=== PATIENT | male | born 1965 | race Two or more races ===

== ENCOUNTER 2020-07-02 13:07 | Outpatient (REF) | payer OTHER, SELFPAY ==
--- NOTE | ~2020-07-02 | XR_ITS ---
EXAMINATION: XR CHEST CLINICAL INFORMATION: Abdominal pain. COMPARISON: None TECHNIQUE: 2 views of the chest were obtained. FINDINGS: The lungs are hypoexpanded with patchy density seen in both lung bases likely atelectasis. The upper lungs are clear. Heart size and pulmonary vascularity is normal. No gross bony abnormality seen. XR/XR chest 2V IMPRESSION: Hypoexpanded lungs with bibasilar atelectasis.
[2020-07-02 13:53] LABS: MANUAL DIFF FLAG NO
[2020-07-02 14:07] LABS: Basophils Percent Auto 0.3 % (0-2); Eosinophils Absolute Auto 0.1 X10*3/uL (0.0-0.4); Eosinophils Percent Auto 0.6 % (0-4); Hematocrit 49.9 % (42-52); Hemoglobin 15.9 g/dl (14.0-18.0); Imm Gran Abs Auto 0.16 X10*3/uL (0.00-0.03); Imm Gran Pct Auto 1.2 % (0.0-0.4); Lymphocytes Absolute Auto 0.9 X10*3/uL (1.2-4.9); Lymphocytes Percent Auto 6.5 % (20-40); Mean Corpuscular HGB Conc 31.9 g/dl (31.0-36.0); Mean Corpuscular Hemoglobin 26.6 pg (27.0-33.0); Mean Corpuscular Volume 83.4 fL (80-98); Mean Platelet Volume 9.7 fL (9.4-12.4); Monocytes Absolute Auto 1.5 X10*3/uL (0.1-1.2); Monocytes Percent Auto 10.5 % (2-11); Neutrophils Absolute Auto 11.2 X10*3/uL (2.0-8.3); Neutrophils Percent Auto 80.9 % (45-73); Platelet Count 323 X10*3/uL (160-400); Red Blood Count 5.98 X10*6/uL (4.60-5.80); Red Cell Distribution Width 13.7 % (11.0-16.0); White Blood Count 13.9 X10*3/uL (4.8-10.8)
[2020-07-02 14:21] LABS: Alanine Aminotransferase 33 U/L (0-40); Albumin Level 4.8 g/dL (3.5-5.0); Alkaline Phosphatase 67 U/L (39-117); Amylase 68 U/L (28-100); Anion Gap 16 (12-20); Aspartate Amino Transferase 20 U/L (5-37); Bilirubin Total 0.7 mg/dL (0.0-1.0); Blood Urea Nitrogen 12 mg/dL (9-16); Calcium 9.9 mg/dL (8.4-10.2); Carbon Dioxide 30 mmol/L (22-29); Chloride 99 mmol/L (96-108); Estimated Glomerular Filt Rate > 60; Glucose Random 109 mg/dL (60-115); Lipase 25 U/L (8-78); Potassium 4.8 mmol/L (3.3-5.1); Sodium 140 mmol/L (135-145); Total Protein 7.8 g/dL (6.5-8.0)
== END 2020-07-02 13:08 | disposition home or self-care (01) ==
LOC: HO.HMGCX 13:07
PROVIDERS: Visit Provider Nurse Practitioner Family
DX: R10.9 Unspecified abdominal pain (principal); R07.89 Other chest pain
CPT/HCPCS: 36415; 71046; 80053; 82150; 83690; 85025

== ENCOUNTER 2020-07-03 12:58 | Outpatient (REF) | payer OTHER, SELFPAY ==
--- NOTE | ~2020-07-03 | CT_ITS ---
EXAMINATION: CT CHEST WITH CONTRAST CLINICAL INFORMATION: Chest pain COMPARISON: Chest x-ray 07/02/2020 TECHNIQUE: Multidetector volumetric CT imaging of the chest was obtained after the administration of 65 mL of Omnipaque 350 intravenous contrast without immediate adverse reactions. Axial MIP volume rendering provided. Sagittal and coronal reformatted images were obtained. This CT examination was performed using dose optimization techniques as appropriate, variously including the following: *Automated exposure control *Adjustment of mA and/or kV according to patient size (this includes techniques or standardized protocols for targeted exams where dose is matched to indication/reason for exam; i.e. extremities or head) *Use of iterative reconstruction technique DLP: 197 mGy-cm FINDINGS: COLDFUSION: Slightly hypoexpanded lungs. LUNGS: Lungs are expanded with right middle lobe, right lower lobe and left lower lobe basilar patchy aeration/atelectasis. The upper lungs are relatively clear. MEDIASTINUM: The thyroid lobes are symmetrical and normal. Heart size and the great vessels are normal caliber. No pericardial effusion seen central trachea and the bronchi widely patent. Small shotty lymph nodes are seen in the mediastinum. PLEURA: There is minimal bilateral posterior pleural thickening. No pleural effusion or calcification seen AXILLA: No lymphadenopathy. UPPER ABDOMEN: Visualized liver, spleen, pancreas and bilateral adrenal glands are unremarkable. Bone windows reveal no gross bony abnormality. OSSEOUS STRUCTURES: Unremarkable. CT/CT chest w con IMPRESSION: Bibasilar and right middle lobe consolidation/atelectasis Minimal bilateral posterior pleural thickening.
[2020-07-03] MEDS: iohexoL 350 MG/ML 100 ML INFUS..BTL 65 ML IV (13:51)
== END 2020-07-03 12:59 | disposition home or self-care (01) ==
LOC: HO.CT 12:58
PROVIDERS: Visit Provider Nurse Practitioner Family
DX: R07.89 Other chest pain (principal)
CPT/HCPCS: 71260; Q9967

== ENCOUNTER 2023-06-20 15:10 | Emergency (ER) | payer OTHER, SELFPAY ==
--- NOTE | 2023-06-20 15:12 | ED.SKABFB ---
HPI - Skin/Abscess/Foreign Bdy General Chief complaint: Wound/Laceration Stated complaint: left wrist infected area Time Seen by Provider: 06/20/23 21:04 Source: patient Mode of arrival: ambulatory History of Present Illness HPI narrative: 57-year-old male who presents with abscess at the left wrist that is initiated on Tuesday of last week, he is currently on antibiotics but states that the pain has increased. He denies any fevers or chills. Related Data Previous Rx's Medication Instructions Recorded diclofenac potassium 50 mg tablet 50 mg PO TID PRN pain #15 tabs 07/03/20 doxycycline hyclate 100 mg capsule 100 mg PO BID 10 days #20 caps 07/03/20 Allergies Allergy/AdvReac Type Severity Reaction Status Date / Time cyclobenzaprine Allergy Unknown INSOMNIA, Unverified 02/07/20 15:42 [CYCLOBENZAPRINE] HICCUPS dexamethasone [DEXAMETHASONE] Allergy Unknown HICCUPS, Unverified 02/07/20 15:42 insomnia, hiccups Review of Systems Review of Systems: Pertinent positives and negatives as stated in HPI PMFSH Past Medical History Source: nursing notes reviewed Social History Social History Smoked in Last 30 Days: No Use of substances other than those prescribed or required for medical reasons: No Advance Directives: No Advance Directives Information Provided: No Physical Exam Vital Signs: Vital Signs: Last Vital Signs Temp 97.8 F 06/20/23 21:11 Pulse 84 06/20/23 21:11 Resp 20 06/20/23 21:11 BP 155/92 H 06/20/23 21:11 Pulse Ox 99 06/20/23 21:11 O2 Del Method Room Air 06/20/23 21:11 BMI result Body Mass Index 27.7 VITAL SIGNS: Reviewed. GENERAL: Well developed, well nourished, in no acute distress. HEAD: Normocephalic/atraumatic EYES: PERRLA, EOMI LUNGS: Normal breath sounds. No adventitious sounds or accessory muscle use. SpO2<99> CARDIOVASCULAR: Regular rate and rhythm without noted murmurs ABDOMEN: Soft, non-tender, non-distended with bowel sounds. MUSCULOSKELETAL: No tenderness, deformities, or effusions noted on gross inspection. EXTREMITIES: No cyanosis, clubbing or edema. LEFT WRIST: abscess, fROM SKIN: Inspection of the skin reveals no rashes NEUROLOGIC: Alert and oriented x 4. Strength and sensation to light touch were grossly intact x 4. Course Course Course Narrative: RME:?57 yo male here for evaluation of abscess to left wrist. States it started as a small bump on his wrist 6 days ago. He was seen at urgent care that day and was started on Keflex and Bactrim for cellulitis of the left wrist. The area has been worsening in the redness is now extending to his arm. He presented to [facility] urgent Care today and was sent to ED for IV antibiotics secondary to failed outpatient treatment. [facility] faxing over note. Denies history of diabetes. Denies any trauma or injury to the wrist. PE: 6cm x 3cm abscess to ventral aspect of left wrist with pointing and some palpable central fluctuance with surrounding erythema extending to distal ventral forearm. yellow discharge noted on bandaid. no streaking or signs of lymphangitis. Full ROM to wrist intact. Normal [place] [employer] strength. 2+ radial pulses to left upper extremity. labs ordered Full HPI, ROS and PE to be performed by the primary ED provider. Medical Decision Making Medical Decision Making [facility] Narrative: 57-year-old male with history and clinical presentation consistent with abscess at left wrist, currently on antibiotics, performed incision and drainage of abscess with copious amounts of purulence drainage, irrigated it copiously and also broke up additional infectious material. Place a dressing and patient instructed to continue with antibiotics and follow-up with his primary care doctor. I reviewed all investigations and hematologic indices do not demonstrate any leukocytosis or left shift, there is no anemia or thrombocytopenia. Chemistry indices are grossly within normal limits and there are no derangements other than the expected elevation of CRP-4.45. Patient understands that he will need to follow-up with primary care doctor and get a referral for follow-up with hand surgery as indicated. Patient was instructed to return to the emergency room if there is no improvement within the next 2 days. Differential Diagnosis Differential Diagnoses: The differential diagnosis associated with the presentation includes Please see the discussion above Admission/Observation Consideration of admission/observation: Escalation of care including admission/observation considered Please see the discussion above Lab Data [facility] Lab Attestation statement: I reviewed the patient's lab results. Please see the discussion above 06/20/23 15:35 06/20/23 15:35 Labs: Lab Results 06/20/23 Range/Units 15:35 WBC 8.1 (4.8-10.8) X10*3/uL RBC 5.87 H (4.60-5.80) X10*6/uL Hgb 16.0 (14.0-18.0) g/dl Hct 48.7 (42.0-52.0) % MCV 83.0 (80.0-98.0) fL MCH 27.3 (27.0-33.0) pg MCHC 32.9 (31.0-36.0) g/dl RDW 13.1 (11.0-16.0) % Plt Count 288 (160-400) X10*3/uL MPV 9.1 L (9.4-12.4) fL Immature Gran % (Auto) 0.5 H (0.0-0.4) % Neut % (Auto) 68.0 (45-73) % Lymph % (Auto) 15.7 L (20-40) % Ransom % (Auto) 13.0 H (2-11) % Eos % (Auto) 1.9 (0-4) % Baso % (Auto) 0.9 (0-2) % Lymph # (Auto) 1.3 (1.2-4.9) X10*3/uL Ransom # (Auto) 1.1 (0.1-1.2) X10*3/uL Eos # (Auto) 0.2 (0.0-0.4) X10*3/uL Baso # (Auto) 0.1 (0.0-0.2) X10*3/uL Abs Immat Gran (auto) 0.04 H (0.00-0.03) X10*3/uL Absolute Neuts (auto) 5.5 (2.0-8.3) x10*3/uL Absolute Nucleated RBC 0.000 (0.0-0.012) X10*3/uL Nucleated RBC % (auto) 0.0 (0.0-0.2) /100WBC ESR 13 (0-15) MM/HR Sodium 139 (135-145) mmol/L Potassium 4.2 (3.3-5.1) mmol/L Chloride 107 (96-108) mmol/L Carbon Dioxide 24 (22-29) mmol/L Anion Gap 12 (12-20) BUN 16 (9-16) mg/dL Creatinine 1.07 (0.5-1.4) mg/dL Estim Creat Clear Calc 78.2 Estimated GFR > 60 Random Glucose 104 (60-115) mg/dL Lactic Acid 0.9 (0.5-2.0) mmol/L Calcium 9.9 (8.4-10.2) mg/dL Magnesium 2.2 (1.6-2.6) mg/dL C-Reactive Protein 4.45 H (< or = 0.50) mg/dL Lipase 37 (8-78) U/L External Record Review External record reviewed: Outpatient record and Prior outpatient labs Procedures Abscess I/D Site: upper extremity Side (if applicable): left Local Anesthetic: lidocaine 1% Amount of anesthesia used (mL): 3 Technique: incised with blade Amount of fluid expressed (mL): 30 Sent for culture/gram staining?: No Irrigation: Yes Packing used?: none Critical Care Time Critical Care Time Critical Care Time: Yes Total Critical Care Time: 30 Attestation: I personally attest to this time spent taking care of the patient. Discharge Plan Discharge Clinical Impression: Encounter for incision and drainage procedure Patient Disposition: Home, Self-Care Instructions: Abscess Incision and Drainage (DC) Additional Instructions: Apply hot moist compresses at least twice a day to encourage further softening and drainage of the infection. Recommend [id number] Tylenol/ibuprofen as needed for pain control. Please complete the entire course of antibiotics as prescribed. Follow-up with your primary care doctor by calling the office in the morning. Return to the ER for any worsening of symptoms such as development of fever, chills, worsening redness and swelling extending up into the elbow area. Prescriptions: No Action doxycycline hyclate 100 mg capsule 100 mg PO BID 10 Days Qty: 20 0RF diclofenac potassium 50 mg tablet 50 mg PO TID PRN (Reason: pain) Qty: 15 0RF
[2023-06-20 15:13] VITALS: BP 141/87; PULSE 86; RESP 18; TEMP 36.8; O2SAT 97; BMI 27.7
[2023-06-20 15:44] LABS: MANUAL DIFF FLAG NO
[2023-06-20 15:45] LABS: Basophils Absolute Auto 0.1 X10*3/uL (0.0-0.2); Basophils Percent Auto 0.9 % (0-2); Eosinophils Absolute Auto 0.2 X10*3/uL (0.0-0.4); Eosinophils Percent Auto 1.9 % (0-4); Hematocrit 48.7 % (42.0-52.0); Imm Gran Abs Auto 0.04 X10*3/uL (0.00-0.03); Imm Gran Pct Auto 0.5 % (0.0-0.4); Lymphocytes Absolute Auto 1.3 X10*3/uL (1.2-4.9); Lymphocytes Percent Auto 15.7 % (20-40); Mean Corpuscular HGB Conc 32.9 g/dl (31.0-36.0); Mean Corpuscular Hemoglobin 27.3 pg (27.0-33.0); Mean Platelet Volume 9.1 fL (9.4-12.4); Monocytes Absolute Auto 1.1 X10*3/uL (0.1-1.2); Neutrophils Absolute Auto 5.5 x10*3/uL (2.0-8.3); Platelet Count 288 X10*3/uL (160-400); Red Blood Count 5.87 X10*6/uL (4.60-5.80); Red Cell Distribution Width 13.1 % (11.0-16.0); White Blood Count 8.1 X10*3/uL (4.8-10.8)
[2023-06-20 15:55] LABS: Lactic Acid 0.9 mmol/L (0.5-2.0)
[2023-06-20 16:00] LABS: Anion Gap 12 (12-20); Blood Urea Nitrogen 16 mg/dL (9-16); C Reactive Protein 4.45 mg/dL (< or = 0.50); Calcium 9.9 mg/dL (8.4-10.2); Carbon Dioxide 24 mmol/L (22-29); Chloride 107 mmol/L (96-108); Creatinine Clr Calc Pharmacy 78.2; Estimated Glomerular Filt Rate > 60; Glucose Random 104 mg/dL (60-115); Lipase 37 U/L (8-78); Magnesium 2.2 mg/dL (1.6-2.6); Potassium 4.2 mmol/L (3.3-5.1); Sodium 139 mmol/L (135-145)
[2023-06-20 16:22] LABS: Erythrocyte Sedimentation Rate 13 MM/HR (0-15)
[2023-06-20 21:11] VITALS: BP 155/92; PULSE 84; RESP 20; TEMP 36.6; O2SAT 99
== END 2023-06-20 22:55 | disposition home or self-care (01) ==
PROVIDERS: Physician Assistant Medical; Emergency Provider Student in an Organized Health Care Education/Training Program
DX: L02.414 Cutaneous abscess of left upper limb (principal)
CPT/HCPCS: 10060; 36415; 80048; 83605; 83690; 83735; 85025; 85652; 86140; 87040; 99283; 99284